=== PATIENT | male | born 1980 | race Caucasian/White ===

== ENCOUNTER 2018-04-19 15:07 | Emergency (ER) | payer OTHER ==
[~2018-04-19] VITALS: Ht 182.8 cm; Wt 126.1 kg
--- NOTE | ~2018-04-19 | EKG ---
[place], [place] ELECTROCARDIOGRAM REPORT NAME: POORNIMA PEREZ UNIT #: [id number] ROOM: DOCTOR: EPIPHANY DRAFT REPORT BIRTHDATE: [birth year] [facility] Test Date: 2018-04-19 Test Time: 15:23:48 Pat Name: POORNIMA PEREZ Department: Room: Gender: Director Of [employer] Applications: : 1980 Requested By: BLAYNE HINSON PA-C Order Number: [id number] Reading MD: Measurements Intervals [place] Rate: 79 P: 31 MI: 163 QRS: -15 QRSD: 98 T: 41 QT: 371 QTc: 426 Interpretive Statements Sinus rhythm Borderline left axis deviation No previous ECG available for comparison CM:EKGRPT:ELECTROCARDIOGRAM REPORT 1523 1224 BLAYNE HINSON PA-C EPIPHANY DRAFT REPORT BLAYNE HINSON PA-C
[~2018-04-19 15:07] MED LIST: AMOXICILLIN500 MG PO; CYCLOBENZAPRINE10 MG PO; HYDR25T PO; IBU800 MG PO; NAPROSYN500 MG PO; NORCO 325 MG-51 TAB PO; PREDNICOT20 MG PO; PREDNISONE10 MG PO; ROBITUSSIN AC 110 ML PO; ROBITUSSIN DM 105 ML PO; TYLENOL WITH CO1 TA1 PO; VENTOLIN H0.09 MG/AC INH
[2018-04-19 15:46] LABS: BASO # 0.1 10*3/uL (0.0-0.1); EOS # 0.3 10*3/uL (0.0-0.4); EOS % 4.1 % (1.0-4.0); HEMATOCRIT 51.2 % (42.0-52.0); HEMOGLOBIN 18.6 g/dl (14.0-18.0); LYMPH # 1.2 10*3/uL (1.3-4.4); LYMPH % 14.6 % (27.0-41.0); MEAN CELL VOLUME 101.2 fl (80.0-94.0); MEAN CORPUSCULAR HGB 36.8 pg (27.0-31.0); MEAN CORPUSCULAR HGB CONC 36.3 g/dl (33.0-37.0); MEAN PLATELET VOLUME 9.8 fl (9.6-12.3); MONO # 0.6 10*3/uL (0.1-1.0); MONO % 7.9 % (3.0-9.0); NEUT # 5.8 10*3/uL (2.3-7.9); PLATELET COUNT AUTOMATED 155 10*3/uL (130-400); RED BLOOD COUNT 5.06 10*6/uL (4.50-5.90); RED CELL DISTRI WIDTH 11.7 % (0-14.5)
[2018-04-19 15:53] LABS: INTERNATIONAL NORM RATIO 0.9 (2.0-3.5)
[2018-04-19 16:02] LABS: ALBUMIN 4.1 gm/dl (3.1-4.5); ALKALINE PHOSPHATASE 122 U/L (45-117); BUN 15 mg/dl (7-24); CHLORIDE 107 mmol/L (98-107); CREATININE 1.15 mg/dL (0.70-1.30); POTASSIUM 4.2 mmol/L (3.5-5.1); SGOT/AST 25 IU/L (3-35); SGPT/ALT 44 U/L (12-78); SODIUM 139 mmol/L (136-145); TOTAL PROTEIN 7.7 gm/dL (6.4-8.2)
[2018-04-19 16:07] LABS: TROPONIN I < 0.015 ng/ml (<0.045)
[2018-04-19] MEDS ORDERED: LISINOPRIL10 M1 PO (17:00)
[2018-04-19] MEDS ORDERED: CYCLOBENZAPRINE5 M3 PO (17:00)
== END 2018-04-19 17:25 | disposition home or self-care (01) ==
LOC: ED 15:07
PROVIDERS: Physician Assistant
DX: I10 Essential (primary) hypertension (principal); R05 Cough; Z79.899 Other long term (current) drug therapy